=== PATIENT | male | born 1980 | race African-American/Black ===

== ENCOUNTER → 2017-05-05 | Emergency (ER) | payer MEDICARE, MEDICAID | END | disposition left against medical advice (07) | LOC: D.ER 12:34 | DX: M54.2 Cervicalgia (principal) ==

== ENCOUNTER 2017-05-26 12:53 | Emergency (ER) | payer MEDICARE, MEDICAID | END 2017-05-26 14:30 | disposition home or self-care (01) | LOC: D.ER 12:53 | DX: G43.909 Migraine, unspecified, not intractable, without status migrainosus (principal); S29.012A Strain of muscle and tendon of back wall of thorax, initial encounter; X58.XXXA Exposure to other specified factors, initial encounter; Y93.89 Activity, other specified; Y92.89 Other specified places as the place of occurrence of the external cause; F17.200 Nicotine dependence, unspecified, uncomplicated ==

== ENCOUNTER 2017-11-19 18:39 | Emergency (ER) | payer MEDICARE, MEDICAID | END 2017-11-19 20:29 | disposition home or self-care (01) | LOC: D.ER 18:39 | DX: M25.571 Pain in right ankle and joints of right foot (principal); M25.471 Effusion, right ankle; F17.200 Nicotine dependence, unspecified, uncomplicated ==

== ENCOUNTER 2018-05-13 17:59 | Emergency (ER) | payer MEDICARE, MEDICAID ==
[~2018-05-13] VITALS: Ht 195.6 cm; Wt 102.3 kg
[2018-05-13 18:31] VITALS: Ht 195.6 cm; Wt 102.3 kg
[2018-05-13] MEDS ORDERED: VOLTAREN75 MG PO (19:38)
[2018-05-13] MEDS ORDERED: ROBAXIN-750750 MG PO (19:38)
[2018-05-13 19:53] VITALS: BP 127/85
== END 2018-05-13 19:54 | disposition home or self-care (01) ==
LOC: D.ER 17:59
DX: S39.012A Strain of muscle, fascia and tendon of lower back, initial encounter (principal); V49.9XXA Car occupant (driver) (passenger) injured in unspecified traffic accident, initial encounter; Y93.89 Activity, other specified; Y92.410 Unspecified street and highway as the place of occurrence of the external cause; G35 Multiple sclerosis; F17.200 Nicotine dependence, unspecified, uncomplicated